=== PATIENT | male | born 1955 | race Caucasian/White ===

== ENCOUNTER 2019-12-26 09:05 | Day surgery (SDC) | payer MEDICAID ==
[~2019-12-26] VITALS: Ht 172.7 cm; Wt 81.8 kg
--- NOTE | ~2019-12-26 | HP ---
PATIENT: KELLY BUCHANAN MEDICAL RECORD: [id number] ACCOUNT: [id number] [facility] : 59 ADMISSION DATE: 12/26/19 PCP: LEXY LANGFORD HISTORY AND PHYSICAL EXAMINATION CHIEF COMPLAINT: Hepatic flexure polyp. The patient is here to undergo a colonoscopy with polypectomy. The risks, possible complications and alternatives to the procedure were explained to the patient. The patient has been asymptomatic. HOME MEDICINES: Have been reviewed. ALLERGIES: No known drug allergies. SOCIAL HISTORY: He is smoker. REVIEW OF SYSTEMS: No coronary artery disease, no angina, no myocardial infarction. PHYSICAL EXAMINATION: GENERAL: The patient does not appear acutely ill. He does not appear chronically ill. EARS: External ears appear normal. EYES: Extraocular movements are intact. NECK: Trachea is midline. CHEST: No intercostal retractions. PULMONARY: Nonlabored. IMPRESSION: Hepatic flexure polyp. PLAN: Colonoscopy with polypectomy. TRANSINT:[id number] Voice Confirmation ID: [id number] DOCUMENT ID: [id number] SKYLAR MERLOS MD CC: SIMON KEITA MD and LEXY LANGFORD MD [id number] DICTATION DATE: 12/26/19 1358 SENIOR BACK END JAVA DEVELOPER: 12/26/19 1423 [facility] [address] [place] [address]
--- NOTE | ~2019-12-26 | OP ---
PATIENT NAME: KELLY BUCHANAN MEDICAL RECORD: [id number] :59 LOCATION:D.OPS ADMISSION DATE: SURGEON: SKYLAR MERLOS MD DATE OF OPERATION: 12/26/2019 PREOPERATIVE DIAGNOSIS: Complex hepatic flexure polyp. POSTOPERATIVE DIAGNOSES: 1. Sessile splenic flexure polyp, 1.4 cm. 2. Arteriovenous malformation of the sigmoid colon. 3. Three small sessile polyps involving the distal sigmoid colon and rectum. PROCEDURES: 1. Total colonoscopy to cecum. 2. Hot forceps ablation of arteriovenous malformation. 3. Hot biopsy forceps polypectomy times 1. 4. Argon plasma coagulation ablation of 3 large bowel polyps. SURGEON: Skylar Merlos MD FINANCIAL PLANNING ANALYST: None. BLOOD LOSS: Minimal. ANESTHESIA: IV sedation. The risks, possible complications and alternatives to the procedure were explained to the patient. He elects to proceed. ENDOSCOPIC COURSE: The patient was conveyed to endoscopy suite electively on 12/26/2019. IV sedation was induced by the anesthesia staff. The patient was placed in the [place] position. A digital rectal examination was performed. A colonoscope was inserted through the anus. It was easily advanced to the cecum. The prep was adequate. I slowly withdrew the endoscope. I irrigated and aspirated extensively. A combination of normal imaging and narrow band imaging was utilized. I scrutinized the hepatic flexure and identified no residual polyp there. I then continued to withdraw the endoscope. I dragged the folds. The pullback was greater than 18-minute pullback. Three large bowel polyps were ablated utilizing the argon plasma procedures nurse. There was one hot biopsy forceps polypectomy, which was performed. An arteriovenous malformation was cauterized and was not biopsied. A retroflexed view was obtained in the rectum. I then unretroflexed the scope and removed it under direct vision. I will see the patient in my office to review the results of the biopsies. I will plan for his next colonoscopy to take place in 2 years. TRANSINT:[id number] Voice Confirmation ID: [id number] DOCUMENT ID: [id number] OPERATIVE REPORT [id number] KELLY BUCHANAN SKYLAR MERLOS MD CC: SIMON KEITA MD and LEXY LANGFORD MD [id number] DICTATION DATE: 12/26/19 1446 HAND STONECUTTER: 12/27/19 0107 [facility] [place] 12/26/19 [facility] [address] [place] [address]
[2019-12-26 09:39] LABS: CALCIUM 9.2 mg/dL (8.5-10.1); CARBON DIOXIDE 28.3 mmol/L (21.0-32.0); CREATININE - SERUM 1.3 mg/dL (0.6-1.3); POTASSIUM - SERUM 4.3 mmol/L (3.5-5.1)
[2019-12-26] MEDS ORDERED: HYDROCODON-ACE1 EA10 PO (10:07)
[2019-12-26] MEDS ORDERED: METHADONE 10 MG10 MG PO (10:08)
[2019-12-26] MEDS ORDERED: BACLOFEN20 M1 (10:09)
[2019-12-26] MEDS ORDERED: MOVANTIK25 MG PO (10:11)
[2019-12-26 10:33] VITALS: BP 143/81; Ht 172.7 cm; Wt 81.8 kg
--- NOTE | 2019-12-26 15:02 | NUR ---
1455 DR. MERLOS ROUNDS. 1500 UP TO BR VOIDS AND PASSES FLATUS.
== END 2019-12-26 15:22 | disposition home or self-care (01) ==
LOC: D.OPS 09:05
PROVIDERS: Anesthesiology; ATTEND Surgery
DX: K63.5 Polyp of colon (principal); K62.1 Rectal polyp